=== PATIENT | male | born 2000 | race African-American/Black ===

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

== ENCOUNTER 2022-02-06 08:39 | Emergency (ER) | payer MEDICAID, OTHER ==
[~2022-02-06] VITALS: Ht 180.3 cm; Wt 58.6 kg
[2022-02-06 09:11] VITALS: BP 113/59
== END 2022-02-06 09:55 | disposition home or self-care (01) ==
LOC: ER 08:39
DX: R10.9 Unspecified abdominal pain (principal)
CPT/HCPCS: 99281

== ENCOUNTER 2022-05-15 06:46 | Emergency (ER) | payer MEDICAID ==
[~2022-05-15] VITALS: Ht 177.8 cm; Wt 68.0 kg
[2022-05-15 09:04] LABS: BASOPHILS % 0.9 % (0.0-2.0); EOSINOPHILS % 0.1 % (0.0-5.0); HEMATOCRIT. 42.6 % (42.0-52.0); HEMOGLOBIN. 14.3 g/dL (14.0-18.0); LYMPHOCYTES % 14.1 % (20.0-50.0); MEAN CORPUSCULAR HEMOGLOBIN 28.9 pg (28.0-32.0); MEAN CORPUSCULAR VOLUME 86.3 fL (80.0-94.0); MEAN PLATELET VOLUME 8.5 fl (7.4-10.4); MONOCYTES % 7.7 % (2.0-8.0); NEUTROPHILS % 77.2 % (40.0-76.0); PLATELET 228 x1000/uL (130-400); RED BLOOD CELL COUNT 4.94 mill/uL (4.7-6.1); RED CELL DISTRIBUTION WIDTH 13.4 % (11.6-14.6)
[2022-05-15 09:13] LABS: CLARITY URINE CLEAR (CLEAR); COLOR URINE YELLOW (YELLOW); KETONES URINE NEGATIVE (NEGATIVE); LEUKOCYTE ESTERASE URINE NEGATIVE (NEGATIVE); NITRITE URINE NEGATIVE (NEGATIVE); OCCULT BLOOD URINE NEGATIVE (NEGATIVE); PH URINE 7.5 (4.5-8.0); PROTEIN URINE NEGATIVE (NEGATIVE); SPECIFIC GRAVITY URINE 1.004 (1.005-1.030); UROBILINOGEN URINE 0.2 E.U./dL (0.2-1.0)
[2022-05-15 09:21] LABS: CHLORIDE 107 mEq/L (98-107)
[2022-05-15 10:04] LABS: ETHANOL BLOOD < 10 mg/dL
[2022-05-15 10:28] LABS: *AMPHETAMINES SCREEN URINE NEGATIVE (NEGATIVE); *BARBITURATES SCREEN URINE NEGATIVE (NEGATIVE); *BENZODIAZEPINES SCREEN URINE NEGATIVE (NEGATIVE); *COCAINE SCREEN URINE NEGATIVE (NEGATIVE); CANNABINOID URINE SCREEN PRESUMTIVE POSITIVE (NEGATIVE); METHADONE URINE SCREEN NEGATIVE (NEGATIVE); OPIATES URINE SCREEN NEGATIVE (NEGATIVE); PHENCYCLIDINE URINE SCREEN NEGATIVE (NEGATIVE)
[2022-05-15] MEDS ORDERED: HALOPERIDOL LACTATE 5MG/ML VIAL IM ONE (10:30)
[2022-05-15] MEDS ORDERED: LORAZEPAM 2MG/ML CPJ IM ONE (10:30)
[2022-05-15] MEDS ORDERED: LORAZEPAM 1MG TABLET PO ONE (22:30)
[2022-05-16] MEDS ORDERED: LORAZEPAM 1MG TABLET PO NR (11:30)
[2022-05-16] MEDS ORDERED: LORAZEPAM 1MG TABLET PO ONE ×2 (13:30→16:00)
[2022-05-16] MEDS ORDERED: NICOTINE 21MG PATCH TD ONE (16:00)
[2022-05-16 16:45] VITALS: BP 132/80
[2022-05-16] MEDS ORDERED: QUETIAPINE FUMARATE 50MG TABLET PO SCH (21:00)
== END 2022-05-16 17:15 | disposition still patient (30) ==
LOC: ER 06:46
DX: R45.851 Suicidal ideations (principal); R44.0 Auditory hallucinations; F32.9 Major depressive disorder, single episode, unspecified; F41.9 Anxiety disorder, unspecified; F12.10 Cannabis abuse, uncomplicated; Z20.822 Contact with and (suspected) exposure to COVID-19
CPT/HCPCS: 36415; 80053; 80305; 80307; 80320; 80329; 81003; 85025; 87426; 96372; 99291; C9803; J1630; J2060; G0480

== ENCOUNTER 2023-10-28 12:29 | Emergency (ER) | payer MEDICAID ==
[~2023-10-28] VITALS: Ht 180.3 cm; Wt 64.0 kg
[2023-10-28 13:22] VITALS: BP 109/68; PULSE 88; RESP 16; TEMP 98.9; O2SAT 99
[2023-10-28] MEDS ORDERED: KETOROLAC 15MG/ML VIAL IM ONE (16:15)
== END 2023-10-28 16:36 | disposition left against medical advice (07) ==
LOC: ER 12:29
DX: R07.89 Other chest pain (principal); M54.2 Cervicalgia; R51.9 Headache, unspecified; V49.9XXA Car occupant (driver) (passenger) injured in unspecified traffic accident, initial encounter; Y93.89 Activity, other specified; Y92.89 Other specified places as the place of occurrence of the external cause; Y99.8 Other external cause status
CPT/HCPCS: 99281; J1885; Z7610